=== PATIENT | female | born 1980 | race Caucasian/White ===

== ENCOUNTER 2022-06-02 11:08 | Emergency (ER) | payer MEDICAID ==
[~2022-06-02] VITALS: Ht 154.9 cm; Wt 64.9 kg
--- NOTE | 2022-06-02 12:00 | NUR ---
Pt brought by partner,A&Ox4, pt presents to ER with R earache ,R facial swelling after scubadiving 2 days ago ,skin pink and warm, cap refill <3, VSS, will cont to monitor
[2022-06-02 12:06] VITALS: BP_SYST 172
--- NOTE | 2022-06-02 12:16 | NUR ---
ER at bedside examining patient.
[2022-06-02] MEDS ORDERED: AUG875 PO (12:21)
[2022-06-02] MEDS ORDERED: CORTEARS RIGHT EAR (12:21)
[2022-06-02] MEDS ORDERED: IBUP-1969 PO (12:29)
[2022-06-02] MEDS ORDERED: KETOROLAC TROMETHAMINE 15 MG VIAL IM ONE (12:30)
[2022-06-02 13:00] VITALS: BP_SYST 162
--- NOTE | 2022-06-02 13:58 | NUR ---
Patient given written and verbal discharge instructions and verbalizes understanding. ER MD discussed with patient the results and treatment provided. Patient in stable condition. ID arm band removed. Rx of Augmentin,Cortisporin and Ibuprofen given. Patient educated on pain management and to follow up with PMD. Pain Scale 2/10 . Opportunity for questions provided and answered. Medication side effect fact sheet provided.
== END 2022-06-02 13:00 | disposition home or self-care (01) ==
LOC: SED 11:08
DX: T70.0XXA Otitic barotrauma, initial encounter (principal); H66.91 Otitis media, unspecified, right ear; Z79.899 Other long term (current) drug therapy; X58.XXXA Exposure to other specified factors, initial encounter
CPT/HCPCS: 99283; 96372; J1885

== ENCOUNTER 2022-12-31 23:04 | Emergency (ER) | payer OTHER ==
[~2022-12-31] VITALS: Ht 154.9 cm; Wt 69.9 kg
[~2022-12-31 23:04] MED LIST: AUG875 PO; CORTEARS RIGHT EAR; IBUP-1969 PO; TRAM50TA2 PO
[2022-12-31 23:20] VITALS: BP_SYST 157; PULSE 100; RESP 19; TEMP 99.7; O2SAT 100
--- NOTE | 2022-12-31 23:26 | NUR ---
Patient triaged and placed in waiting room. VS checked and patient appears in no acute distress at this time. Accompanied by family , awaiting available bed, and MD notified of need for MSE.
--- NOTE | 2023-01-01 00:23 | NUR ---
PAtient ambulatory to bed 6 for evaluation and treatment
--- NOTE | 2023-01-01 00:43 | NUR ---
PT BIB FROM HOME C/O RT FLANK PAIN 10/17 AND FEVER OF 101 AT 2210 12/31. PT STATES TOOK IBUPROFEN FOR FEVER. PT TEMP ON 99.1 AT THIS TIME. PT STATES DOHERTY AND NAUSEA AND VOMITING X 1 DAY. PT STATES HX OF UTI AND MIGRAINE DOHERTY. PT RESTING COMFORTABLY IN BED WITH RAILS UP BEDSIDE VSS
--- NOTE | 2023-01-01 00:45 | NUR ---
ER at bedside examining patient.
[2023-01-01 00:54] LABS: BILIRUBIN,URINE NEGATIVE (NEGATIVE); BLOOD, URINE 1+ (NEGATIVE); CLARITY/URINE CLEAR (CLEAR); COLOR,URINE YELLOW (YELLOW); GLUCOSE,URINE NEGATIVE (NEGATIVE); KETONES,URINE NEGATIVE (NEGATIVE); LEUKOCYTE ESTERASE ,URINE NEGATIVE (NEGATIVE); NITRITE, URINE NEGATIVE (NEGATIVE); PH,URINE 7.5 (5.0-8.0); PROTEIN URINE NEGATIVE (NEGATIVE); UROBILINOGEN,URINE 0.2 (0.2-1.0)
[2023-01-01 01:07] LABS: BACTERIA,URINE RARE /HPF (None Seen)
[2023-01-01] MEDS ORDERED: ONDANSETRON 4 MG ODT TAB PO ONE (01:15)
[2023-01-01] MEDS ORDERED: KETOROLAC TROMETHAMINE 60 MG/2 ML VIAL IM ONE (01:15)
[2023-01-01] MEDS ORDERED: IBUP-1971 PO (01:27)
[2023-01-01] MEDS ORDERED: ONDA8TAB60 PO (01:27)
[2023-01-01 01:55] VITALS: BP_SYST 157; PULSE 100; RESP 19; TEMP 99.7; O2SAT 100
--- NOTE | 2023-01-01 02:39 | NUR ---
Patient given written and verbal discharge instructions and verbalizes understanding. ER MD discussed with patient the results and treatment provided. Patient in stable condition. ID arm band removed. Rx of IBUPROFEN AND ONDANSETRON given. Patient educated on NAUSEA AND VOMITING, DIARRHEA AND ABD PAIN and to follow up with PMD. Pain Scale . Opportunity for questions provided and answered. Medication side effect fact sheet provided.
== END 2023-01-01 01:55 | disposition home or self-care (01) ==
LOC: SED 23:04
DX: R10.13 Epigastric pain (principal); R19.7 Diarrhea, unspecified; R11.2 Nausea with vomiting, unspecified; Z79.899 Other long term (current) drug therapy
CPT/HCPCS: 99283; 81000; 96372; Q0162; J1885

== ENCOUNTER 2023-11-10 04:26 | Emergency (ER) | payer OTHER ==
[~2023-11-10] VITALS: Ht 154.9 cm; Wt 67.1 kg
[2023-11-10 04:26] VITALS: BP_SYST 171; PULSE 110; RESP 20; TEMP 97.7; O2SAT 98
[~2023-11-10 04:26] MED LIST changes: +IBUP-1971 PO; +ONDA8TAB60 PO
[2023-11-10] MEDS: ASPIRIN 325 MG TABLET PO ONE (04:53)
[2023-11-10 05:38] LABS: BASOPHILS # (AUTO) 0.1 K/uL (0.0-0.2); BASOPHILS % (AUTO) 0.6 % (0.0-2.0); EOSINOPHILS # (AUTO) 0.1 K/uL (0.0-0.4); EOSINOPHILS % (AUTO) 0.5 % (0.0-4.0); HEMATOCRIT 36.5 % (36-48); HEMOGLOBIN 12.7 g/dL (12.0-16.0); LYMPHOCYTES # (AUTO) 2.2 K/uL (1.0-5.5); MEAN CORPUSCULAR HEMOGLOBIN 30 pg (27-31); MEAN CORPUSCULAR HGB CONC 35 % (32-36); MEAN CORPUSCULAR VOLUME 87 fL (79.0-98.0); MONOCYTES # (AUTO) 0.7 K/uL (0.0-1.0); MONOCYTES % (AUTO) 6.5 % (1.7-9.3); NEUTROPHILS # (AUTO) 8.1 K/uL (1.8-7.7); NEUTROPHILS % (AUTO) 72.4 % (40.0-70.0); PLATELET COUNT (AUTO) 439 K/uL (130-430); RED BLOOD CELL COUNT(AUTO) 4.19 MIL/uL (4.2-6.2); RED CELL DISTRIBUTION WIDTH 14.4 % (9.0-15.0); WHITE BLOOD COUNT (AUTO) 11.2 K/uL (4.8-10.8)
[2023-11-10 05:46] LABS: ANION GAP 9 (5-15); CALCIUM 9.1 mg/dL (8.4-11.0); CARBON DIOXIDE 26 mmol/L (23-29); CHLORIDE 101 mmol/L (98-107); CREATININE 0.56 mg/dL (0.55-1.30); GFR AFRICAN AMERICAN 151 mL/min (>90); GLUCOSE 102 mg/dL (74-106); POTASSIUM 3.6 mmol/L (3.5-5.1); PROTHROMBIN TIME 10.4 SECS (9.5-12.5); SODIUM SERUM 136 mmol/L (136-145); UREA NITROGEN, BLOOD 5 mg/dL (8-21)
[2023-11-10 05:50] LABS: GFR NON AFRICAN-AMERICAN 124 mL/min (>90)
[2023-11-10 05:51] LABS: BARBITURATE, URINE NEGATIVE (NEG <=200); BENZODIAZEPINE, URINE NEGATIVE (NEG <=150); CANNABINOID, URINE NEGATIVE (NEG <=50); COCAINE, URINE POSITIVE (NEG <=150); METHAMPHETAMINES SCREEN,URINE NEGATIVE (NEG <=500); OPIATE, URINE NEGATIVE (NEG <=100); PHENCYCLIDINE SCREEN,URINE NEGATIVE (NEG <=25); UR TRICYCLIC ANTIDEPRESSANTS NEGATIVE (NEG <=300); URINE AMPHETAMINE NEGATIVE (NEG <=500); URINE METHADONE NEGATIVE (NEG <=200); URINE OXYCODONE SCREEN NEGATIVE (NEG <=100)
[2023-11-10 07:37] VITALS: BP_SYST 129; PULSE 78; RESP 17; TEMP 98.6; O2SAT 98
== END 2023-11-10 07:35 | disposition home or self-care (01) ==
LOC: SED 04:26
DX: R07.9 Chest pain, unspecified (principal); R00.0 Tachycardia, unspecified; Z79.899 Other long term (current) drug therapy; Z79.2 Long term (current) use of antibiotics
CPT/HCPCS: 36415; 80048; 80307; 84484; 85025; 85610; 85730; 93005; 99285